=== PATIENT | female | born 1945 | race Caucasian/White ===

== ENCOUNTER → 2022-04-21 | Outpatient (CLI) | payer MEDICARE | END | disposition home or self-care (01) | LOC: RAH 12:24 | PROVIDERS: ATTEND Family Medicine | DX: I07.1 Rheumatic tricuspid insufficiency (principal); I25.2 Old myocardial infarction | CPT/HCPCS: 93306 ==

== ENCOUNTER 2023-04-27 07:36 | Day surgery (SDC) | payer MEDICARE ==
[2023-04-27] VITALS (9 sets, daily range): BP systolic 136–155; BP diastolic 73–80; PULSE 62–69; RESP 14–16
[2023-04-27] MEDS ORDERED: PROPOFOL 10 MG/ML 20ML VIAL IV ONE ×2 (09:58→10:14)
[2023-04-27] MEDS ORDERED: LIDOCAINE PF 100MG/5ML (2%) SYRINGE 5ML ONE (09:58)
[2023-04-27] MEDS ORDERED: 0.9%NACL 1000ML 1,000 ML IV ONE (11:42)
== END 2023-04-27 11:43 | disposition home or self-care (01) ==
LOC: ENDO 07:36 → DAH 07:36 → ENDO 11:43
PROVIDERS: ATTEND Internal Medicine Gastroenterology
DX: Z12.11 Encounter for screening for malignant neoplasm of colon (principal); Z20.822 Contact with and (suspected) exposure to COVID-19; K62.1 Rectal polyp; K64.1 Second degree hemorrhoids; E03.9 Hypothyroidism, unspecified; I25.10 Atherosclerotic heart disease of native coronary artery without angina pectoris; J45.909 Unspecified asthma, uncomplicated; E78.5 Hyperlipidemia, unspecified; Z86.010 Personal history of colon polyps; Z88.8 Allergy status to other drugs, medicaments and biological substances; Z88.0 Allergy status to penicillin; Z86.73 Personal history of transient ischemic attack (TIA), and cerebral infarction without residual deficits; Z86.16 Personal history of COVID-19; Z90.89 Acquired absence of other organs; Z90.49 Acquired absence of other specified parts of digestive tract; Z98.890 Other specified postprocedural states; Z90.710 Acquired absence of both cervix and uterus; Z98.49 Cataract extraction status, unspecified eye; Z82.49 Family history of ischemic heart disease and other diseases of the circulatory system; Z83.3 Family history of diabetes mellitus; Z80.3 Family history of malignant neoplasm of breast; Z83.438 Family history of other disorder of lipoprotein metabolism and other lipidemia; Z79.82 Long term (current) use of aspirin; Z79.01 Long term (current) use of anticoagulants; Z79.890 Hormone replacement therapy
CPT/HCPCS: 87635; 45380; J7030 ×2; J2001; J2704 ×2; A4620; A4215 ×2; A4223; A7002; A4222; A4221; A4663; A4606

== ENCOUNTER → 2024-09-13 | Outpatient (CLI) | payer OTHER ==
--- NOTE | 2024-09-13 14:17 | HMCIMG ---
CT CORONARY CALCIFICATION SCORING: Anatomic images were reviewed. The calcium score is being generated and reported separately. This report is for the visualized anatomy only. Visualized portions of the lungs are clear. Hilar and mediastinal structures appear normal. Osseous structures are unremarkable. Impression: 1. Negative noncardiac anatomic findings. 2. The calcium score is 389.7 consistent with a moderate degree of calcified plaque. This is 90th percentile for a patient this age. CT was performed with one or more following dose reduction techniques: automated exposure control, adjustment of the mA and kv according to patient's size, or use of a iterative reconstruction technique.
== END | disposition home or self-care (01) ==
LOC: RAH 12:53
PROVIDERS: ATTEND Nurse Practitioner Adult Health
DX: Z13.6 Encounter for screening for cardiovascular disorders (principal); I25.10 Atherosclerotic heart disease of native coronary artery without angina pectoris
CPT/HCPCS: 75571